=== PATIENT | male | born 1960 | race Caucasian/White ===

== ENCOUNTER 2017-01-17 14:28 | Emergency (ER) | payer SELFPAY ==
[~2017-01-17] VITALS: Ht 180.3 cm; Wt 90.0 kg
[2017-01-17] MEDS ORDERED: PERI0.126 SWISH-SPIT (16:10)
[2017-01-17] MEDS ORDERED: MAGICPED SWISH-SWAL (16:10)
[2017-01-17] MEDS ORDERED: IBUP800T23 PO (16:10)
[2017-01-17] MEDS ORDERED: AMOX500C PO (16:10)
--- NOTE | 2017-01-17 16:11 | PD ---
HPI Chief Complaint: ENT Complaint Time Seen by Provider: 16:09 Travel History International Travel<30 days: No Contact w/Intl Traveler<30days: No Traveled to known affect area: No History of Present Illness HPI 56-year-old male presents to the emergency Department with complaint of right lower tooth pain for approximately one month that he has been being treated for by his dentist, tried to save the tooth. He is here on vacation and the filling fell out of the tooth about 3 days ago. He is requesting for the tooth to be packed. He has had increased pain and now has mild swelling to his right jaw area. He denies fever, chills, nausea, vomiting. No known allergies. Denies significant past medical history. No other modifying factors or associated signs and symptoms. [facility] Social History Tobacco Use: No Allergies-Medications (Allergen,Severity, Reaction): Coded Allergies: No Known Allergies (Unverified , 01/17/17) Reported Meds & Prescriptions Reported Meds & Active Scripts Active Ibuprofen 800 Mg Tab 800 Mg PO Q6HR PRN Peridex Liq (Chlorhexidine Gluconate (Mouth) Liq) 0.12% Soln 15 Ml SWISH-SPIT BID 10 Days Magic Mouthwash Pediatric/Adult Liq (Lidocaine/Diphenhydr/Alum/Mg/Simeth) 60 Ml Susp 5 Ml SWISH-SWAL Q3HR PRN Each 5mL contains: Diphenydramine 4.5mg, Viscous Lidocaine 2% 10mg, Maalox Advanced Regular Strength 2.7ml Amoxicillin 500 Mg Cap 500 Mg PO BID 10 Days Review of Systems Except as stated in HPI: all other systems reviewed are Neg Physical Exam Narrative GENERAL: Well-nourished, well-developed male patient, in no acute distress; afebrile, nontoxic-appearing SKIN: Warm and dry. HEAD: Atraumatic. Normocephalic. Mild facial edema noted to the right jawline; without erythema; with tenderness on palpation. No lymphadenopathy. EYES: Pupils equal and round. No scleral icterus. No injection or drainage. ENT: Mucosa pink and moist. Airway patent. MOUTH: Mucous membranes moist, no lesions, tongue and gums appear normal. Right lower second molar with large dental cavity; surrounding gingiva is mildly edematous and without erythema or drainage; to this with tenderness on palpation. No obvious abscess noted. NECK: Trachea midline. No lymphadenopathy. CARDIOVASCULAR: Regular rate. RESPIRATORY: No accessory muscle use. GASTROINTESTINAL: Flat. MUSCULOSKELETAL: No obvious deformities. No clubbing. No cyanosis. No edema. NEUROLOGICAL: Awake and alert. Oriented 3. No obvious cranial nerve deficits. Motor grossly within normal limits. Normal speech. PSYCHIATRIC: Appropriate mood and affect; insight and judgment normal. MDM Medical Decision Making Medical Screen Exam Complete: Yes Emergency Medical Condition: Yes Medical Record Reviewed: Yes Differential Diagnosis Dentalgia, dental cavity infection, dental abscess, gingivitis Narrative Course 56-year-old male with right lower dentalgia. He has minimal facial edema to the right lower jaw area. Without erythema. No obvious abscess noted. Patient is afebrile and nontoxic-appearing. Denies fever, chills, nausea, vomiting. Amoxicillin and ibuprofen administered in the ER. Instructed patient to follow up with dentist. Amoxicillin, ibuprofen, Magic mouthwash, Peridex mouth rinse prescribed for home. Patient verbalizes understanding and agreement with treatment plan. Patient is medically cleared and stable for discharge. Discussed reasons to return to the emergency department. Instructed patient to follow up with primary care provider. Patient agrees with treatment plan. The patients vital signs are stable and the patient is stable for outpatient follow-up and treatment. Patient discharged home, stable and in no acute distress. Diagnosis Primary Impression: Dentalgia Referrals: Dentist Primary Care Physician Patient Instructions: Dental Abscess (ED), Dental Caries (ED), General Instructions, Toothache (ED) Additional Instructions: Complete full course of antibiotics Ibuprofen as directed and as needed to reduce pain and inflammation Use Magic mouthwash rinse as directed and as needed to decrease pain Use Peridex as directed for oral hygiene Warm compresses to the affected area Follow-up with dentist Follow-up with primary care provider Return to emergency department immediately with worsening of symptoms Med/Other Pt SpecificInfo: Prescription(s) given Scripts Ibuprofen 800 Mg [id number] Mg PO Q6HR PRN (PAIN) #30 TAB Ref 0 Prov:Rylee Boyd 01/17/17 Chlorhexidine Gluconate (Mouth) Liq (Peridex Liq)0.12% Soln15 Ml SWISH-SPIT BID 10 Days Ref 0 Prov:Rylee Boyd 01/17/17 Lvajlmysjdstfng-Lolvkgzfi-Utu-Alum-Simeth Liq (Magic Mouthwash Pediatric/Adult Liq)60 Ml Susp5 Ml SWISH-SWAL Q3HR PRN (PAIN SCALE 1 TO 10) #60 ML Ref 0 Each 5mL contains: Diphenydramine 4.5mg, Viscous Lidocaine 2% 10mg, Maalox Advanced Regular Strength 2.7ml Prov:Rylee Boyd 01/17/17 Amoxicillin 500 Mg [id number] Mg PO BID 10 Days Ref 0 Prov:Rylee Boyd 01/17/17 Disposition: 01 DISCHARGE HOME Condition: Stable Rylee Boyd Jan 17, 2017 16:11
[2017-01-17 16:22] VITALS: BP 120/71; PULSE 71; RESP 18; O2SAT 99
[2017-01-17] MEDS ORDERED: AMOXICILLIN (TRIHYDRATE) 500 MG CAP PO ONE (16:30)
[2017-01-17] MEDS ORDERED: IBUPROFEN 800 MG TAB PO ONE (16:30)
== END 2017-01-17 16:42 | disposition home or self-care (01) ==
LOC: NETRI 14:28
DX: K08.89 Other specified disorders of teeth and supporting structures (principal)
CPT/HCPCS: 99282